=== PATIENT | female | born 1995 | race African-American/Black ===

== ENCOUNTER 2016-12-11 23:47 | Outpatient (CLI) | payer OTHER ==
[~2016-12-11] VITALS: Ht 152.4 cm; Wt 75.0 kg
[2016-12-12 01:39] VITALS: BP 125/71
[2016-12-12] MEDS ORDERED: PRENTAB9 PO (02:00)
--- NOTE | 2016-12-12 07:32 | HPE ---
DATE OF ADMISSION: 12/11/2016 21-year-old, 2, para 1, last menstrual period (LMP) of 05/21/2016, estimated date of confinement (EDC) 02/25/2017, at 29+ weeks of gestation, and history of intercourse with having contractions. RISK FACTORS: Had previous section. Chlamydia positive September 2016. Test of cure was negative. PAST HISTORY: 2014 primary section, 8 pound 6 ounce, failure progress occiput posterior (OP) and 6 cm. LABORATORY DATA: AB positive. HIV negative. Hepatitis negative. RPR, rubella immune. Varicella immune. Urine negative. Gonorrhea negative. Chlamydia positive. Test of cure negative. 1-hour glucose 116. Blood pressure 125/71, respirations 20, pulse 91, temperature 98.7. Urine 10/15, pH 6, +1 ketones. No distress. Category 1 strip. Contractions secondary to intercourse. Pelvic examination: Cervix closed, posterior high, not dilated. No vaginal loss or bleeding. The rest the examination is unremarkable. She is normocephalic, atraumatic. Neck full range of motion. Pupils equal and reactive to light. Thyroid is normal, midline, 30 grams, nontender. Distal pulses symmetric. No evidence of deep venous thrombosis (DVT), pulmonary embolism (PE) or superficial phlebitis. Chest is clear bilaterally to bases. No wheezes or rhonchi. No costovertebral angle (CVA) tenderness. Symphysis fundus height is appropriate. Nontender uterus. Four quadrant bowel sounds are noted. Category 1 strip. Multiple tattoos over the entire body. No lesions. No rashes. No pruritus. No arthralgia or myalgia. No complaints of cough, wheezes, shortness of breath or dyspnea on exertion. No chest pain. No bruising. No bleeding. Neuro complete. No incontinency or frequency. No nausea, vomiting, diarrhea or constipation. No diabetic issues. RESIDENTIAL SUBSTANCE ABUSE COUNSELOR unremarkable. Past medical unremarkable. Surgical noncontributory. Family noncontributory. Does not smoke or drink, abuse drugs, and there is no domestic violence. She is to a soldier. In summary, we have a 29 weeks having uterine irritability secondary to intercourse and +1 ketones, a bit of dehydration. Hydration IV bolus fluids were done. Category 1 strip reactive. Baby precautions were given, discharged, not delivered. Expected next appointment 12/17/2016.
== END 2016-12-12 01:10 | disposition home or self-care (01) ==
LOC: M LDO 23:47
PROVIDERS: ATTEND Obstetrics & Gynecology
DX: O26.893 Other specified pregnancy related conditions, third trimester (principal); Z3A.29 29 weeks gestation of pregnancy; O62.0 Primary inadequate contractions; E86.0 Dehydration; O47.03 False labor before 37 completed weeks of gestation, third trimester; Z88.0 Allergy status to penicillin; Z88.8 Allergy status to other drugs, medicaments and biological substances; O99.283 Endocrine, nutritional and metabolic diseases complicating pregnancy, third trimester

== ENCOUNTER 2017-01-12 14:23 | Outpatient (CLI) | payer OTHER ==
[~2017-01-12] VITALS: Ht 152.4 cm; Wt 78.0 kg
[~2017-01-12 14:23] MED LIST: PRENTAB9 PO
[2017-01-12 14:46] VITALS: BP 118/78
[2017-01-12 15:03] VITALS: BP 130/73
[2017-01-12 16:14] VITALS: BP 122/65
== END 2017-01-12 17:50 | disposition home or self-care (01) ==
LOC: M LDO 14:23
PROVIDERS: ATTEND Obstetrics & Gynecology
DX: O26.893 Other specified pregnancy related conditions, third trimester (principal); Z3A.33 33 weeks gestation of pregnancy; R10.2 Pelvic and perineal pain; R31.9 Hematuria, unspecified; Z88.0 Allergy status to penicillin; Z88.8 Allergy status to other drugs, medicaments and biological substances

== ENCOUNTER 2017-02-20 20:22 | Outpatient (CLI) | payer OTHER | END 2017-02-20 21:05 | disposition home or self-care (01) | LOC: M LDO 20:22 | PROVIDERS: ATTEND Obstetrics & Gynecology | DX: O47.1 False labor at or after 37 completed weeks of gestation (principal); Z3A.39 39 weeks gestation of pregnancy; Z88.0 Allergy status to penicillin; Z88.1 Allergy status to other antibiotic agents; Z88.8 Allergy status to other drugs, medicaments and biological substances ==

== ENCOUNTER 2017-02-23 21:53 | Outpatient (CLI) | payer OTHER ==
[~2017-02-23] VITALS: Ht 152.4 cm; Wt 83.0 kg
--- NOTE | 2017-02-24 16:12 | HPE ---
DATE OF ADMISSION: 02/23/2017 HISTORY: A 21-year-old 2, para 1, last menstrual period (LMP) 05/21/2016, estimated date of confinement (EDC) 02/25/2017 at 39 and 5 weeks of gestation with a persistent history of contractions more intense in nature. No loss of fluid or vaginal discharge. She is planned for a trial of labor after (TOLAC). PAST MEDICAL HISTORY: In 2013, at 40 weeks section 8 pounds 6 ounces. Baby was in the Persistent occiput posterior (POP) position, failure to descend and failure to dilate. She had a primary section. LABORATORY DATA: A positive. HIV negative, hepatitis negative, RPR negative, rubella immune. Varicella immune. Urine negative. Gonorrhea negative, chlamydia was positive, test to cure was negative. one-hour glucose 116. EXAMINATION: On examination, symphysis fundus height is 40, vertex OA, -4, high, posterior, thick, closed, category one strip. Temperature is 98.2, respirations are 18, pulse 83 and blood pressure 193/76. Urine is 1.050, pH six, +1 leukocytes. SUMMARY: We have a lady who has had some uterine irritability which subsides with hydration. She had not changed her cervix which was similar to what it was several days ago when she was in for the same issue. She was counseled regarding precautions, when to call the doctor, and appropriate interval management. She has an appointment this coming week for discussion of induction, of her request for TOLAC. The patient was discharged undelivered.
== END 2017-02-23 23:05 | disposition home or self-care (01) ==
LOC: M LDO 21:53
PROVIDERS: ATTEND Obstetrics & Gynecology
DX: O47.1 False labor at or after 37 completed weeks of gestation (principal); Z3A.39 39 weeks gestation of pregnancy; Z88.0 Allergy status to penicillin; Z88.8 Allergy status to other drugs, medicaments and biological substances; Z88.1 Allergy status to other antibiotic agents

== ENCOUNTER 2017-02-25 11:32 | Outpatient (CLI) | payer OTHER ==
[~2017-02-25] VITALS: Ht 152.4 cm; Wt 82.0 kg
--- NOTE | 2017-02-25 12:39 | IPNPDOC ---
Text Note Date of Service The patient was seen on 02/25/17. NOTE Raya is a 21yo with SIUP at 40w0d presenting for contractions all night. She states she had very painful ctx last night, less painful now, but still occurring. Not sure how far apart. Feels good movement. No LOF or VB. course significant for hx of prior for OP presentation with arrest of dilation desiring TOLAC, chlamydia in early with negative RG, UTI in treated twice. Vitals wnl General: WDWN, NAD Abdomen: gravid, NTTP SCE (RN as jack prizer): 1-2/80/-2, soft, mid NST: reactive, bl 135, +accels, -decels, mod lulu [place]: ctx [id number] Assessment: Raya is a 21yo with SIUP at 40w0d with hx of prior desiring TOLAC presenting for labor check with no evidence of labor, SCE 1-2/80/-2, ctx [id number]. Reassuring status, vitals wnl. Plan: -Return precautions discussed at length -Keep clinic appointment this Saturday -All questions answered MD Baldo Michael Katrina D MD Feb 25, 2017 12:39
== END 2017-02-25 12:35 | disposition home or self-care (01) ==
LOC: M LDO 11:32
PROVIDERS: ATTEND Obstetrics & Gynecology
DX: O47.1 False labor at or after 37 completed weeks of gestation (principal); Z3A.40 40 weeks gestation of pregnancy; Z87.440 Personal history of urinary (tract) infections; Z86.19 Personal history of other infectious and parasitic diseases; Z88.0 Allergy status to penicillin; Z88.8 Allergy status to other drugs, medicaments and biological substances

== ENCOUNTER 2017-02-28 04:06 | Inpatient (IN) | payer OTHER ==
[~2017-02-28] VITALS: Ht 152.4 cm; Wt 91.0 kg
[2017-02-28] VITALS (42 sets, daily range): BP systolic 102–145; BP diastolic 56–85
[2017-02-28] MEDS ORDERED: LR 1,000 ML IV ONE (05:30)
[2017-02-28] MEDS ORDERED: LACTATED RINGER'S 1000 ML IV STA (05:46)
[2017-02-28 06:28] LABS: MEAN CORPUSCULAR HEMOGLOBIN 23.5 pg (27.0-33.0); MEAN CORPUSCULAR HGB CONC 31.2 g/dl (32.0-36.5); MEAN CORPUSCULAR VOLUME 75.5 fl (80.0-96.0); PLATELET COUNT, AUTOMATED 251 10^3/uL (150-450); RED CELL DISTRIBUTION WIDTH 17.4 % (11.5-14.5); WHITE BLOOD COUNT 13.6 10^3/uL (4.0-10.0)
[2017-02-28] MEDS ORDERED: FENTANYL 2MCG/ML ROPIVACAINE 0.2% IN 0.9% NACL 200ML IVBAG As Ordered ONE (06:37)
[2017-02-28] MEDS ORDERED: ePHEDrine SULFATE 25 MG/5 ML(5MG/ML) SYRINGE IV PRN (09:30)
[2017-02-28] MEDS ORDERED: FENTANYL/ROPIVACAINE/NACL BAG 200 ML EPIDURAL SCH (09:30)
[2017-02-28] MEDS ORDERED: ONDANSETRON 4MG/2ML VIAL (J2405) IV PRN ×3 (09:30→21:30)
[2017-02-28] MEDS ORDERED: REFRIGERATOR IV KEYS XX PRN (09:30)
[2017-02-28] MEDS ORDERED: NALOXONE INJ 0.4 MG/1 ML VIAL (J2310) IV PRN ×2 (09:30→21:00)
[2017-02-28] MEDS ORDERED: EPIDURAL COMMENT XX SCH (09:30)
[2017-02-28] MEDS ORDERED: diphenhydrAMINE INJ 50MG/ML VIAL (J1200) IV PRN ×2 (09:30→21:00)
[2017-02-28] MEDS ORDERED: LACTATED RINGER'S 1000 ML IV PRN (09:30)
[2017-02-28] MEDS ORDERED: EPIDURAL/PCA KEYS XX PRN ×2 (09:30→21:00)
--- NOTE | 2017-02-28 11:18 | IPNPDOC ---
Text Note Date of Service The patient was seen on 02/28/17. NOTE SBAR from Dr Mina at 730 T Cat 1, reg ctx's Cx /-2 Incidental SROM with clr fluid with check a/p: Doing well. Cont monitoring. recheck in 2 hrs, sooner prn. Sessions VS,Tyrone, I+O VSTyrone, I+O Laboratory Tests 02/28/17 06:04 Red Blood Count 4.08, Mean Corpuscular Volume 75.5 L, Mean Corpuscular Hemoglobin 23.5 L, Mean Corpuscular Hemoglobin Concent 31.2 L, Red Cell Distribution Width 17.4 H Vital Signs Date Time Temp Pulse Resp B/P (MAP) Pulse Ox O2 Delivery O2 Flow Rate FiO2 02/28/17 10:24 76 128/73 (91) 02/28/17 09:51 98.7 16 SESSIONS,MARINA De La Torre MD Feb 28, 2017 11:18
--- NOTE | 2017-02-28 12:52 | IPNPDOC ---
Text Note Date of Service The patient was seen on 02/28/17. NOTE FHT Cat 1 Cx largely unchanged except vtx much better applied recheck in ~2 hrs, sooner prn Sessions VS,Tyrone, I+O VSTyrone I+O Laboratory Tests 02/28/17 06:04 Red Blood Count 4.08, Mean Corpuscular Volume 75.5 L, Mean Corpuscular Hemoglobin 23.5 L, Mean Corpuscular Hemoglobin Concent 31.2 L, Red Cell Distribution Width 17.4 H Vital Signs Date Time Temp Pulse Resp B/P (MAP) Pulse Ox O2 Delivery O2 Flow Rate FiO2 02/28/17 10:53 100 16 119/65 (83) 02/28/17 09:51 98.7 SESSIONS,MARINA De La Torre MD Feb 28, 2017 12:52
[2017-02-28] MEDS: LR 1,000 ML IV SCH ×2 (13:22→19:12)
--- NOTE | 2017-02-28 16:10 | IPNPDOC ---
Text Note Date of Service The patient was seen on 02/28/17. NOTE FHT Cat 2, mostly mod lulu, periods of minimal lulu, reg ctx's. 1500 RN cx unchanged. 1600 Cx 5-6//-2, no significant change, IUPC placed. If adeq MVU's and no change in 2 hrs, will rec RCS. Pt states understanding. If not adeq will consider augmenting with pitocin if tracing allows. Will monitor closely. Sessions VSTyrone, I+O VSTyrone I+O Laboratory Tests 02/28/17 06:04 Red Blood Count 4.08, Mean Corpuscular Volume 75.5 L, Mean Corpuscular Hemoglobin 23.5 L, Mean Corpuscular Hemoglobin Concent 31.2 L, Red Cell Distribution Width 17.4 H Vital Signs Date Time Temp Pulse Resp B/P (MAP) Pulse Ox O2 Delivery O2 Flow Rate FiO2 02/28/17 15:24 90 110/62 (78) 02/28/17 15:14 99.7 16 I&O- Last 24 Hours up to 6 AM 03/01/17 06:00 Intake Total 1825 ml Output Total 750 ml Balance 1075 ml SESSIONS,MARINA De La Torre MD Feb 28, 2017 16:10
--- NOTE | 2017-02-28 17:26 | IPNPDOC ---
Text Note Date of Service The patient was seen on 02/28/17. NOTE MVU's 240-260 last hour FHT still Cat2 but reassuring, mostly mod lulu Cx unchanged Temporal 100.4, oral 99.3 IUPC will be in ~2 hrs in 1 hr, will recheck then, if still unchanged will be de facto arrest of dilation Pt OK with likely ERCS if no change at next check Sessions VS,Tyrone, I+O VSTyrone I+O Laboratory Tests 02/28/17 06:04 Red Blood Count 4.08, Mean Corpuscular Volume 75.5 L, Mean Corpuscular Hemoglobin 23.5 L, Mean Corpuscular Hemoglobin Concent 31.2 L, Red Cell Distribution Width 17.4 H Vital Signs Date Time Temp Pulse Resp B/P (MAP) Pulse Ox O2 Delivery O2 Flow Rate FiO2 02/28/17 17:08 99.3 02/28/17 16:53 90 119/82 (94) 02/28/17 15:14 16 I&O- Last 24 Hours up to 6 AM 03/01/17 06:00 Intake Total 1825 ml Output Total 750 ml Balance 1075 ml SESSIONS,MARINA De La Torre MD Feb 28, 2017 17:26
[2017-02-28] MEDS ORDERED: CLINDAMYCIN 900 MG in APPROPRIATE DILUENT 1 EA IV ONE (19:00)
[2017-02-28] MEDS ORDERED: GENTAMICIN 80 MG in APPROPRIATE DILUENT 1 EA IV ONE (19:00)
--- NOTE | 2017-02-28 19:12 | IPNPDOC ---
Text Note Date of Service The patient was seen on 02/28/17. NOTE FHT improved. Reg, adeq ctx's. Cx unchanged ERCS indicated. Anesthesia and OR team to be mobilized, no emergency. OR has a humidity problem, maintenance to fix/address before proceeding to the OR. Sessions Tyrone JAY, I+O Tyrone HEARD I+O Laboratory Tests 02/28/17 06:04 Red Blood Count 4.08, Mean Corpuscular Volume 75.5 L, Mean Corpuscular Hemoglobin 23.5 L, Mean Corpuscular Hemoglobin Concent 31.2 L, Red Cell Distribution Width 17.4 H Vital Signs Date Time Temp Pulse Resp B/P (MAP) Pulse Ox O2 Delivery O2 Flow Rate FiO2 02/28/17 17:08 99.3 02/28/17 16:53 90 119/82 (94) 02/28/17 15:14 16 I&O- Last 24 Hours up to 6 AM 03/01/17 06:00 Intake Total 1825 ml Output Total 750 ml Balance 1075 ml MARINA BURGOS MD Feb 28, 2017 19:12
[2017-02-28] MEDS ORDERED: BICITRA 30ML SOLN UDC PO ONE (19:15)
[2017-02-28] MEDS ORDERED: ONDANSETRON 4MG/2ML VIAL (J2405) IV ONE (19:45)
[2017-02-28] MEDS ORDERED: fentaNYL 100 MCG/2 ML INJECTION (J3010) As Ordered ONE (20:22)
[2017-02-28] MEDS ORDERED: OXYTOCIN INJ 10 UNITS/ML VIAL (J2590) As Ordered ONE (20:27)
[2017-02-28] MEDS ORDERED: MIDAZOLAM INJ 2 MG/2 ML VIAL (J2250) As Ordered ONE (20:27)
[2017-02-28] MEDS ORDERED: KETAMINE HCL 200 MG/20 ML VIAL As Ordered ONE (20:32)
[2017-02-28] MEDS ORDERED: KETOROLAC 60 MG/2 ML VIAL (J1885) As Ordered ONE (20:35)
[2017-02-28] MEDS ORDERED: ONDANSETRON 4MG/2ML VIAL (J2405) As Ordered ONE (20:35)
[2017-02-28] MEDS ORDERED: NALBUPHINE HCL 10 MG/ML AMP (J2300) IV PRN (21:00)
[2017-02-28] MEDS: DOCUSATE SODIUM 100 MG CAP PO SCH (21:00)
[2017-02-28] MEDS ORDERED: MORPHINE 1MG/ML IN 0.9% NACL 100ML IV BAG IV PRN (21:00)
[2017-02-28] MEDS ORDERED: LR 1,000 ML IV SCH (21:30)
[2017-02-28] MEDS ORDERED: MEASLES,MUMPS,RUBELLA VACCINE INJ (MMR-II) (90707) SC SCH (21:30)
[2017-02-28] MEDS ORDERED: PERCOCET 5MG/325MG TAB PO PRN (21:30)
[2017-02-28] MEDS ORDERED: fentaNYL 100 MCG/2 ML INJECTION (J3010) IV PRN (21:30)
[2017-02-28] MEDS ORDERED: METOCLOPRAMIDE INJ 10MG/2ML VIAL (J2765) IV PRN ×2 (21:30)
[2017-02-28] MEDS ORDERED: MEPERIDINE INJ 25 MG/ML VIAL (J2175) IV PRN (21:30)
[2017-02-28] MEDS ORDERED: RHOGAM 300 MCG (1500 IU) INJ (J2790) IM SCH (21:30)
[2017-03-01 00:45] VITALS: BP 127/67
[2017-03-01 01:45] VITALS: BP 121/75
[2017-03-01] MEDS: KETOROLAC 30 MG/ML VIAL (J1885) IV SCH ×4 (03:01→21:15)
[2017-03-01 06:31] LABS: MEAN CORPUSCULAR HEMOGLOBIN 23.3 pg (27.0-33.0); MEAN CORPUSCULAR HGB CONC 31.3 g/dl (32.0-36.5); MEAN CORPUSCULAR VOLUME 74.3 fl (80.0-96.0); PLATELET COUNT, AUTOMATED 208 10^3/uL (150-450); RED CELL DISTRIBUTION WIDTH 17.6 % (11.5-14.5); WHITE BLOOD COUNT 17.3 10^3/uL (4.0-10.0)
[2017-03-01 06:34] VITALS: BP 125/61
--- NOTE | 2017-03-01 06:50 | IPNPDOC ---
Text Note Date of Service The patient was seen on 03/01/17. NOTE POD1 prog note s/p yest evening States feeling well, no complaints. No heavy VB. Pain controlled with CHANNEL SPECIALIST. Ambulatory to NICU (chorio). Bonding well and feeding well. VSSAF CTAB RRR Ut at U, firm Ext no CCE Inc with dry bandage, no strike thru UO adeq This AM HCT 25.2, preop HCT was 30.8 (EBL 600) a/p: Doing well. routine postop care. Likely d/c in 48 hrs. Sessions Tyrone JAY, I+O Tyrone HEARD I+O Laboratory Tests 03/01/17 06:12 Red Blood Count 3.39 L, Mean Corpuscular Volume 74.3 L, Mean Corpuscular Hemoglobin 23.3 L, Mean Corpuscular Hemoglobin Concent 31.3 L, Red Cell Distribution Width 17.6 H Vital Signs Date Time Temp Pulse Resp B/P (MAP) Pulse Ox O2 Delivery O2 Flow Rate FiO2 03/01/17 06:34 99.3 94 18 125/61 (82) 99 Room Air SESSIONS,MARINA De La Torre MD Mar 01, 2017 06:50
[2017-03-01] MEDS: PRENATAL VITAMINS CHEWABLE TABLET PO SCH (08:16)
[2017-03-01] MEDS: DOCUSATE SODIUM 100 MG CAP PO SCH ×2 (08:16→21:15)
[2017-03-01 13:46] VITALS: BP 125/75
--- NOTE | 2017-03-01 15:58 | HPE ---
DATE OF ADMISSION: 02/28/2017 This lady is a 21-year-old 2, para 1, last menstrual period (LMP) was 05/21/2016, estimated date of confinement (EDC) 02/25/2017 at 40 and three weeks of gestation in active labor. She is attempting a trial of labor after (TOLAC). Her last baby, she was persistent occiput posterior (POP), had a primary section, failure to dilate at 6 cm. Presently, she is 3 cm, POP, bulging membranes, -3 station. PAST HISTORY: In 2013, at 40 weeks, section 8 pounds 6 ounces because of POP position. RISK FACTORS: She has a previous section. She was counseled and she was counseled again. She had Chlamydia. Test of cure was negative. She had a urinary tract infection (UTI) that was treated and test of cure was negative. LABORATORY DATA: AB positive, HIV negative, hepatitis negative, RPR negative, rubella immune. Varicella immune. Urine negative. Gonorrhea and chlamydia negative. 1-hour glucose was 116. GBS is negative as mentioned. She had Chlamydia but test of cure was negative. PHYSICAL EXAMINATION: On examination, distressed female. Symphysis fundus height is 42, vertex, category one strip, 3 cm, thin bulging membranes, -3 station, POP position. Incisional site is clean, dry and is nontender. Urine is 1.015, pH seven, trace of protein. Blood pressure 139/85, respirations 20, pulse is 73, temperature is 98.3. The rest of the examination is unremarkable. She is normocephalic. Atraumatic. Neck full range of motion. Pupils equal and reactive to light. Lungs are clear bilaterally to bases. No wheezes or rhonchi. Distal pulses symmetric. No evidence of deep venous thrombosis (DVT), pulmonary embolism (PE) or superficial phlebitis. No costovertebral angle tenderness. Four quadrant bowel sounds were noted. No rashes, lesions or pruritus. No arthralgia or myalgia. No complaints of cough, wheezes, shortness of breath or dyspnea on exertion. No chest pain. No bleeding. Neuro complete. Multiple allergies to PREDNISONE, LEVOFLOXACIN, AMOXICILLIN, TRAMADOL. She has no incontinence, urgency or frequency. No nausea, vomiting, diarrhea or constipation. Neuro complete. No diabetic issues. Surgical history is section. Medical history unremarkable. Family history noncontributory. She does not smoke, drink, or abuse drugs. No domestic violence. She is to a soldier and has good support system. In summary, we have a early term gestation attempting of TOLAC after previous section for POP and failure to descend or dilate after 6 cm. Our plan of management is to get the lab work, intravenous (IV) epidural as needed. Monitor closely. She is npo. MTDD
[2017-03-01 18:29] VITALS: BP 115/77
[2017-03-01] MEDS: PERCOCET 5MG/325MG TAB PO PRN (18:37)
[2017-03-01 22:00] VITALS: BP 124/73
[2017-03-02] MEDS: PERCOCET 5MG/325MG TAB PO PRN ×3 (01:06→20:02)
[2017-03-02 02:00] VITALS: BP 132/76
[2017-03-02] MEDS: IBUPROFEN 800 MG TAB PO SCH ×3 (04:40→20:42)
[2017-03-02 06:00] VITALS: BP 125/64
[2017-03-02] MEDS: PRENATAL VITAMINS CHEWABLE TABLET PO SCH (08:20)
[2017-03-02] MEDS: DOCUSATE SODIUM 100 MG CAP PO SCH ×2 (08:20→20:41)
--- NOTE | 2017-03-02 09:05 | IPNPDOC ---
Progress Note Date of Service The patient was seen on 03/02/17 at 09:02. Progress Note Post-Op Day 2 Pt is doing well with pain well controlled. She is ambulating, voiding spontaneously and tolerating regular diet without issue. Trying to breast feeding in the NICU. Denies f/c/n/v/CP/SOB. Lochia is scant. Vitals wnl, afebrile General: WDWN, resting comfortably Abdomen: soft, ND, NTTP, fundus firm at u-2cm. Pfannensteil incision is intact with steri strips overlying, no erythema/induration/drainage. Extremities: no pain with palpation of calves Assessment: Raya is a 21yo [id number] doing well Post-op day 2 s/p uncomplicated RLTCS for failed TOLAC on 02/28. Vitals wnl, exam benign. for baby in NICU (NICU 2/2 chorio). Hemodynamically stable with no evidence of infection. Plan: -Routine post-op/ care -Motrin and percocet prn pain -Encourage breast feeding and ambulation -Likely discharge home tomorrow Dr. Caron Bland MD VS, I&O, 24H, Fishbone Vital Signs/I&O Vital Signs Date Time Temp Pulse Resp B/P (MAP) Pulse Ox O2 Delivery O2 Flow Rate FiO2 03/02/17 06:00 97.4 88 20 125/64 (84) 99 Room Air Caron Bland MD Mar 02, 2017 09:05
--- NOTE | 2017-03-02 13:57 | RO ---
DATE OF PROCEDURE: 02/28/2017 PREOPERATIVE DIAGNOSIS: Arrest of dilation despite adequate [place] units, prior . POSTOPERATIVE DIAGNOSIS: Arrest of dilation despite adequate [place] units, prior . OPERATION: Repeat delivery. SURGEON: Keagan Carvajal MD SENIOR FIRE PROTECTION ENGINEER: Vp Purchasing, Tonie Ibarra CNM ANESTHESIA: Epidural. ESTIMATED BLOOD LOSS: 600 mL. DRAINS: 250 mL of clear urine in the Gonzalez catheter. FLUIDS REPLACED: 1400 mL of Lactated Ringer's. SPECIMENS: Placenta, but not sent to pathology. PREOPERATIVE ANTIBIOTICS: Gentamicin and clindamycin due to amoxicillin allergy. INDICATION: The patient was admitted in labor and only proceeded to 5-6 cm. Therefore, an intrauterine pressure catheter (IUPC) was placed and [place]'s were more than 200 persistently with regular contractions, but she did not progress past 5-6 cm. I recommended to undergo repeat delivery and the patient agreed. Informed consent was obtained. FINDINGS: Male , LOP, clear fluid, scores of 5 and 9, 4210 grams, 9 pounds 5 ounces, fairly severe intraperitoneal scar tissue that did not allow for uterine removal through the skin incision. DESCRIPTION OF OPERATION: The patient was taken to the operating room with an IV in place, an epidural in place, and a Gonzalez catheter in place. She was placed in dorsal supine position with a leftward tilt. heart tones in the operating room (OR) were normal. She was prepped and draped in a normal sterile fashion. A skin incision over her prior Pfannenstiel skin incision was performed down to the layer of the fascia. It was nicked in the midline and extended bilaterally the extent of the skin incision. Brian clamps were used to tent up the superior and inferior aspects of the fascial incision and the underlying rectus muscles were dissected off sharply. With successive spreading maneuvers, the peritoneum was eventually identified, tented up and entered sharply. There was a significant amount of scar tissue present that was very obvious and a significant amount of blunt dissection and some sharp dissection was needed to obtain an adequate window through the peritoneum to be able to deliver the infant. There was a significant amount of scar tissue of the interior uterus to the anterior abdominal wall above the window where we would deliver the infant, therefore the uterus would not be able to be exteriorized. A bladder blade was placed and a bladder flap was created, and the low transverse uterine incision was performed in a curvilinear fashion and stretched to adequacy. Amniotomy at this point revealed clear fluid and we could see the infants facial structures. Delivered the head through the uterine incision keeping in a flexed position throughout and with fundal pressure, there was no difficulty in doing so. The infant was noted to be in good shape with spontaneous cry and good tone. However, scores were 5 and 9. The simply did not become vigorous on the table and needed small amount of PPV and resuscitation, please see the pediatric chart. The uterus was cleared of all clots and debris with two dry sponges and then the low transverse uterine incision edges were all identified, grasped with ring forceps, elevated and after ensuring that the bladder was not involved in any of the clamps, a running suture of #0 Vicryl from left to right in a locked fashion was used to close the hysterotomy. #0 Monocryl was used to imbricate as well. There was never a fear of bladder injury and excellent hemostasis was noted after closure times two as described above. The peritoneum was closed with a running suture of #2-0 Vicryl and the rectus muscle was also reapproximated with three loose interrupted #2-0 Vicryl sutures. The rectus belly as hemostatic and the fascia was closed from left to right with a running suture of #0 Vicryl without difficulty. Subcutaneous tissue was copiously irrigated and made to be hemostatic and this potential space closed with a #2-0 Vicryl. The skin was closed with #4-0 Monocryl in a subcuticular fashion from left to right. Steri-Strips were placed, a pressure dressing was placed, and the patient's legs were then frogged and the uterus was noted to be firm at U with bimanual massage. All clots and debris were cleared from the vagina and cervix. All counts were correct throughout including sponge, needle and instruments. FRANNIE
[2017-03-02 18:15] VITALS: BP 135/82
[2017-03-03] MEDS: PERCOCET 5MG/325MG TAB PO PRN ×2 (02:39→08:07)
[2017-03-03] MEDS: IBUPROFEN 800 MG TAB PO SCH (04:50)
[2017-03-03 06:00] VITALS: BP 124/74
[2017-03-03] MEDS ORDERED: medroxyPROGESTERone ACET IM SUSP 150 MG/ML VIAL (J1050) IM ONE (07:00)
--- NOTE | 2017-03-03 07:58 | IPNPDOC ---
Text Note Date of Service The patient was seen on 03/03/17. NOTE POD3 prog note s/p yest evening States feeling well, no complaints. No heavy VB. Bonding well and feeding well. Pain controlled. No LP/CP/N/V. VSSAF CTAB RRR Ut at U-2, firm Ext no CCE Inc CDI 2 days ago HCT 25.2 a/p: Doing well. D/C to home. Sessions VS,Tyrone, I+O VSTyrone, I+O Vital Signs Date Time Temp Pulse Resp B/P (MAP) Pulse Ox O2 Delivery O2 Flow Rate FiO2 03/03/17 06:00 97.4 72 18 124/74 (91) 99 Room Air SESSIONS,MARINA De La Torre MD Mar 03, 2017 07:58
--- NOTE | 2017-03-03 08:01 | DS.PDOC ---
Discharge Summary General Date of Admission Feb 28, 2017 at 05:47 Date of Discharge 03MAR2017 Discharge Summary Discharge Summary Admission Diagnosis: Active labor, attempting TOLAC Discharge Diagnosis: s/p uncomplicated repeat delivery Condition: stable Meds on discharge: Motrin, Lanolin, Percocet, Colace Hospital Course: Pt is a 21 y/o female admitted with labor, desired a TOLAC. The pt progressed to well through labor to 6 cm dilation but never progressed past this dilation despite adequate MVU's. Please see operative note for details, significant scar tissue intraperitoneally. On POD#3, the pt had normal VS, the pt was tolerating reg diet, ambulating, pain was well controlled , minimal lochia. She was desirous of discharge and was discharged home with follow up in 1-2 and 6-8wks in OB clinic. Home recommendations: Nothing in vagina for 6 weeks, no bathing for 4 weeks, no driving for 2 weeks. Sessions Vital Signs/I&Os Vital Signs Date Time Temp Pulse Resp B/P (MAP) Pulse Ox O2 Delivery O2 Flow Rate FiO2 03/03/17 06:00 97.4 72 18 124/74 (91) 99 Room Air Discharge Medications Scheduled Multivitamins/ ( 27-0.8 mg) 1 Tab Tab, 1 TAB PO DAILY, (Reported ) Allergies Coded Allergies: Amoxicillin (Verified Allergy, Unknown, HIVES, 12/12/16) Famotidine (Verified Allergy, Unknown, HIVES, 12/12/16) Levofloxacin (Verified Allergy, Unknown, HIVES, 12/12/16) Prednisone (Verified Allergy, Unknown, HIVES, 12/12/16) Tramadol (Verified Allergy, Unknown, HIVES, 12/12/16) SESSIONS,MARINA De La Torre MD Mar 03, 2017 08:01
[2017-03-03] MEDS: DOCUSATE SODIUM 100 MG CAP PO SCH (08:07)
[2017-03-03] MEDS: PRENATAL VITAMINS CHEWABLE TABLET PO SCH (08:07)
[2017-03-03] MEDS ORDERED: COLA100C5 PO (10:17)
[2017-03-03] MEDS ORDERED: IBUP-1114 PO (10:17)
[2017-03-03] MEDS ORDERED: OXYC1TAB23 PO ×2 (10:17)
== END 2017-03-03 12:45 | disposition home or self-care (01) | DRG 766 ==
LOC: M LDO 04:06 → M LDI 05:47 → M OBS 23:00
PROVIDERS: ADMIT Obstetrics & Gynecology; ATTEND Obstetrics & Gynecology
PROC: 10D00Z1 Extraction of Products of Conception, Low, Open Approach (ICD-10-PCS; principal; 2017-02-28 19:51)
DX: O48.0 Post-term pregnancy (principal); Z37.0 Single live birth; Z3A.40 40 weeks gestation of pregnancy; O34.211 Maternal care for low transverse scar from previous cesarean delivery; Z88.1 Allergy status to other antibiotic agents; Z88.5 Allergy status to narcotic agent; Z88.8 Allergy status to other drugs, medicaments and biological substances; O66.41 Failed attempted vaginal birth after previous cesarean delivery; O62.0 Primary inadequate contractions

== ENCOUNTER → 2017-07-25 | Outpatient (REF) | payer OTHER ==
[2017-07-25 18:38] LABS: APPEARANCE, URINE MANUAL CLOUDY (CLEAR); BILIRUBIN, URINE MANUAL NEGATIVE (NEGATIVE); COLOR, URINE MANUAL YELLOW (YELLOW); GLUCOSE, URINE (UA) MANUAL NEGATIVE (NEGATIVE); KETONE, URINE MANUAL NEGATIVE (NEGATIVE); NITRITE, URINE MANUAL NEGATIVE (NEGATIVE); PH,URINE MAN 6.5 UNITS (5.0 - 7.0); PROTEIN, URINE MANUAL NEGATIVE (NEGATIVE); SPECIFIC GRAVITY,URINE MANUAL 1.015 (1.002-1.035); UROBILINOGEN, URINE MANUAL NORMAL (NORMAL)
[2017-07-25 18:39] LABS: BLOOD URINE MANUAL TRACE (NEGATIVE); LEUKOCYTE ESTERASE, URINE MAN TRACE (NEGATIVE); MICROSCOPIC INDICATED? MAN YES (NO)
[2017-07-25 18:40] LABS: BACTERIA, URINE SMALL AMOUNT; HYALINE CAST, URINE NONE SEEN /lpf (0-1); RBC, URINE 0-1 /hpf (0-3); SQUAMOUS EPITHELIAL CELL URINE LARGE AMOUNT /hpf (SMALL AMT)
[2017-07-25 18:41] LABS: AMORPHOUS SEDIMENT, URINE LARGE AMOUNT (NEGATIVE); MICROSCOPIC EXAM PERFORMED; MUCUS, URINE LARGE AMOUNT (NEGATIVE)
[2017-07-25 18:46] LABS: CHLAMYDIA DNA AMPLIFICATION POSITIVE (NEGATIVE); GC DNA AMPLIFICATION NEGATIVE (NEGATIVE)
== END ==
LOC: M LAB REF 16:47
DX: N76.0 Acute vaginitis (principal)
CPT/HCPCS: 81000